=== PATIENT | male | born 1995 | race Caucasian/White ===

== ENCOUNTER 2019-11-11 21:05 | Emergency (ER) | payer OTHER ==
[~2019-11-11] VITALS: Ht 182.9 cm; Wt 61.2 kg
[2019-11-11] MEDS ORDERED: TRAZODONE 150150 M1 PO (21:18)
[2019-11-11] MEDS ORDERED: ZOLOFT50 M1 PO (21:19)
[2019-11-11] MEDS ORDERED: DOXYCYCLINE 10100 MG PO (22:51)
[2019-11-11 23:08] VITALS: BP 130/74
== END 2019-11-11 23:08 | disposition home or self-care (01) ==
LOC: M.ERS 21:05
DX: S61.412A Laceration without foreign body of left hand, initial encounter (principal); Z88.0 Allergy status to penicillin; W54.0XXA Bitten by dog, initial encounter; Y93.89 Activity, other specified; Y92.89 Other specified places as the place of occurrence of the external cause; Y99.8 Other external cause status